=== PATIENT | male | born 1960 | race Caucasian/White ===

== ENCOUNTER 2023-11-09 19:38 | Emergency (ER) | payer OTHER, SELFPAY ==
[2023-11-09 19:41] VITALS: BP 143/74; PULSE 85; O2SAT 95
[2023-11-09 19:56] VITALS: BP 142/85; PULSE 76; RESP 20; TEMP 37.3; O2SAT 95; BMI 49.6
[2023-11-09 20:10] LABS: Appearance Urine Clear; Color Urine Orange; Glucose Urine UA Negative (Negative); Leukocyte Esterase Urine Small (1+) (Negative); Nitrite Urine Negative (Negative); PH 5.5 (5.0-9.0); Specific Gravity - Urine 1.015 (1.005-1.025); UMIC TRIGGER UACC YES; Urine Blood Large (3+) (Negative); Urine Ketones Negative (Negative); Urine Protein 300 (3+) mg/dL (Neg-Trace)
[2023-11-09 20:19] LABS: MANUAL DIFF FLAG NO
[2023-11-09 20:21] LABS: Basophils Absolute Auto 0.1 X10*3/uL (0.0-0.2); Basophils Percent Auto 0.8 % (0-2); Eosinophils Absolute Auto 0.2 X10*3/uL (0.0-0.4); Hematocrit 44.8 % (42.0-52.0); Hemoglobin 14.9 g/dl (14.0-18.0); Imm Gran Abs Auto 0.02 X10*3/uL (0.00-0.03); Imm Gran Pct Auto 0.3 % (0.0-0.4); Lymphocytes Absolute Auto 1.1 X10*3/uL (1.2-4.9); Lymphocytes Percent Auto 13.7 % (20-40); Mean Corpuscular HGB Conc 33.3 g/dl (31.0-36.0); Mean Corpuscular Hemoglobin 26.9 pg (27.0-33.0); Mean Platelet Volume 11.4 fL (9.4-12.4); Monocytes Absolute Auto 0.9 X10*3/uL (0.1-1.2); Monocytes Percent Auto 10.9 % (2-11); Neutrophils Absolute Auto 5.7 x10*3/uL (2.0-8.3); Neutrophils Percent Auto 71.3 % (45-73); Platelet Count 208 X10*3/uL (160-400); Red Blood Count 5.53 X10*6/uL (4.60-5.80); Red Cell Distribution Width 14.6 % (11.0-16.0)
[2023-11-09 20:30] LABS: Bacteria Urine None Seen (None Seen); Hyaline Casts Urine 0-2 /LPF (0-2); RBC Urine >20 /HPF (0-2); Squamous Epithelial Cell Urine 0-2 /HPF (0-2); UACC Culture Trigger YES
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
[2023-11-09 20:39] LABS: Alanine Aminotransferase 18 U/L (0-40); Albumin Level 4.2 g/dL (3.5-5.0); Alkaline Phosphatase 83 U/L (39-117); Anion Gap 17 (12-20); Aspartate Amino Transferase 16 U/L (5-37); Bilirubin Total 0.7 mg/dL (0.0-1.0); Blood Urea Nitrogen 17 mg/dL (9-16); Calcium 9.6 mg/dL (8.4-10.2); Carbon Dioxide 27 mmol/L (22-29); Chloride 101 mmol/L (96-108); Creatinine Clr Calc Pharmacy 177.9; Estimated Glomerular Filt Rate > 60; Glucose Random 106 mg/dL (60-115); Potassium 3.9 mmol/L (3.3-5.1); Sodium 141 mmol/L (135-145); Total Protein 7.7 g/dL (6.5-8.0)
[2023-11-09 20:44] LABS: B Type Natriuretic Peptide 18 pg/mL (<100)
[2023-11-09 20:47] LABS: Troponin-I High Sensitivity 3.4 ng/L (<3.5-35.0)
[2023-11-09 21:10] LABS: Lipase 15 U/L (8-78)
[2023-11-09] MEDS: oxyBUTYnin chloride ER 5 MG TAB.ER.24 10 MG PO (22:50)
--- NOTE | 2023-11-09 23:02 | ED.MALEGU ---
HPI - Male Genitourinary General Chief complaint: Urogenital-Male Stated complaint: CARVER CATH ISSUES Time Seen by Provider: 11/09/23 21:10 Source: patient Mode of arrival: EMS History of Present Illness HPI Narrative: 63-year-old male brought in by EMS, paraplegic at baseline with chronic use of Carver catheter since August of this year. He states that he has had significant suprapubic discomfort and has recently had the Carver catheter placed, he was evaluated at [facility] within the past 24 hours. He denies any fevers or chills. Patient also reports he has had significant difficulty getting his primary care doctor to set up transportation for his urology visits. Related Data Previous Rx's ?Medication ?Instructions ?Recorded oxybutynin chloride 10 mg 10 mg PO DAILY #3 tabs 11/10/23 tablet,extended release 24 hr Allergies Allergy/AdvReac Type Severity Reaction Status Date / Time No Known Allergies Allergy Verified 11/09/23 19:57 Review of Systems Review of Systems: Pertinent positives and negatives as stated in [facility]PI [facility] Past Medical History Source: nursing notes reviewed Social History Social History Smoked in Last 30 Days: No Use of substances other than those prescribed or required for medical reasons: No Advance Directives: No Advance Directives Information Provided: No Do you have a plan to hurt others: No Plan Physical Exam Vital Signs: Vital Signs: Last Vital Signs Temp 99.2 F 11/09/23 19:56 Pulse 76 11/09/23 19:56 Resp 20 11/09/23 19:56 BP 142/85 H 11/09/23 19:56 Pulse Ox 95 11/09/23 19:56 O2 Del Method Room Air 11/09/23 19:56 BMI result Body Mass Index 49.6 VITAL SIGNS: Reviewed. GENERAL: Elevated BMI, Well developed, well nourished, in no acute distress. HEAD: Normocephalic/atraumatic EYES: PERRLA, EOMI EARS: Ext canals without abnormality NOSE: Nares patent bilateral OROPHARYNX: no oral lesions noted, posterior pharynx clear NECK: Supple, no adenopathy LUNGS: Normal breath sounds. No adventitious sounds or accessory muscle use. SpO2<95> CARDIOVASCULAR: Regular rate and rhythm without noted murmurs, no JVD or lower extremity edema. ABDOMEN: Soft, non-tender, non-distended with bowel sounds. : Patent with noted occasional blood clots MUSCULOSKELETAL: No tenderness, deformities, or effusions noted on gross inspection. EXTREMITIES: No cyanosis, clubbing or edema. SKIN: Inspection of the skin reveals no rashes, ulcerations, jaundice, pallor, or petechiae. NEUROLOGIC: Alert and oriented x 4. Paraplegia at baseline at level T4 Medications Administered Discontinued Medications Generic Name Dose Route Start Last Admin Trade Name Freq PRN Reason Stop Dose Admin Oxybutynin Chloride 10 mg 11/09/23 22:31 11/09/23 22:50 Oxybutynin Chloride Er 5 Mg Tab.Er.24 PO 11/09/23 22:32 10 mg ONCE ONE Administration Medical Decision Making Medical Decision Making [facility] Narrative: 63-year-old male with history and clinical presentation, DDX: Bladder spasm versus urinary tract infection. Carver catheter appears patent so do not suspect urinary retention. INTERVENTION: 10 mg oxybutynin I reviewed all investigations and hematologic indices are negative for leukocytosis/anemia/thrombocytopenia. Chemistry indices are negative for TAMI/electrolyte or liver enzyme derangements. Urinalysis demonstrates presence of hematuria, no presence of bacteria and on re-evaluation patient is resting comfortably in bed. Patient is otherwise discharged home with a referral to follow-up with urology in the next 1-2 days. Differential Diagnosis Differential Diagnoses: The differential diagnosis associated with the presentation includes Please see the discussion above Admission/Observation Consideration of admission/observation: Escalation of care including admission/observation considered Please see the discussion above Lab Data [facility] Lab Attestation statement: I reviewed the patient's lab results. Please see the discussion above 11/09/23 20:13 11/09/23 20:13 Labs: Lab Results 11/09/23 11/09/23 Range/Units 19:59 20:13 WBC 8.0 (4.8-10.8) X10*3/uL RBC 5.53 (4.60-5.80) X10*6/uL Hgb 14.9 (14.0-18.0) g/dl Hct 44.8 (42.0-52.0) % MCV 81.0 (80.0-98.0) fL MCH 26.9 L (27.0-33.0) pg MCHC 33.3 (31.0-36.0) g/dl RDW 14.6 (11.0-16.0) % Plt Count 208 (160-400) X10*3/uL MPV 11.4 (9.4-12.4) fL Immature Gran % (Auto) 0.3 (0.0-0.4) % Neut % (Auto) 71.3 (45-73) % Lymph % (Auto) 13.7 L (20-40) % Tama % (Auto) 10.9 (2-11) % Eos % (Auto) 3.0 (0-4) % Baso % (Auto) 0.8 (0-2) % Lymph # (Auto) 1.1 L (1.2-4.9) X10*3/uL [place]ama # (Auto) 0.9 (0.1-1.2) X10*3/uL Eos # (Auto) 0.2 (0.0-0.4) X10*3/uL Baso # (Auto) 0.1 (0.0-0.2) X10*3/uL Abs Immat Gran (auto) 0.02 (0.00-0.03) X10*3/uL Absolute Neuts (auto) 5.7 (2.0-8.3) x10*3/uL Absolute Nucleated RBC 0.000 (0.0-0.012) X10*3/uL Nucleated RBC % (auto) 0.0 (0.0-0.2) /100WBC Sodium 141 (135-145) mmol/L Potassium 3.9 (3.3-5.1) mmol/L Chloride 101 (96-108) mmol/L Carbon Dioxide 27 (22-29) mmol/L Anion Gap 17 (12-20) BUN 17 H (9-16) mg/dL Creatinine 0.67 (0.5-1.4) mg/dL Estim Creat Clear Calc 177.9 Estimated GFR > 60 Random Glucose 106 (60-115) mg/dL Calcium 9.6 (8.4-10.2) mg/dL Total Bilirubin 0.7 (0.0-1.0) mg/dL AST 16 (5-37) U/L ALT 18 (0-40) U/L Alkaline Phosphatase 83 (39-117) U/L Troponin I High Sens 3.4 (<3.5-35.0) ng/L B-Natriuretic Peptide 18 (<100) pg/mL Total Protein 7.7 (6.5-8.0) g/dL Albumin 4.2 (3.5-5.0) g/dL Lipase 15 (8-78) U/L Urine Color [place] A Urine Appearance Clear Urine pH 5.5 (5.0-9.0) Ur Specific [place] 1.015 (1.005-1.025) Urine Protein 300 (3+) H (Neg-Trace) mg/dL Urine Glucose (UA) Negative (Negative) mg/dL Urine Ketones Negative (Negative) mg/dL Urine Blood Large (3+) H (Negative) Urine Nitrite Negative (Negative) Ur Leukocyte Esterase Small (1+) H (Negative) Urine RBC >20 H (0-2) /HPF Urine WBC 6-10 H (0-5) /HPF Ur Squamous Epith Cells 0-2 (0-2) /HPF Urine Bacteria None Seen (None Seen) Hyaline Casts 0-2 (0-2) /LPF Urine Yeast Present Chronic Conditions Paraplegia Critical Care Time Critical Care Time Critical Care Time: Yes Total Critical Care Time: 45 Attestation: I personally attest to this time spent taking care of the patient. Discharge Plan Discharge Clinical Impression: Bladder spasm Patient Disposition: Home, Self-Care Instructions: Carver Catheter Placement and Care (ED) Additional Instructions: Your workup tonight is negative and suspect you may have been experiencing bladder spasms. A prescription for medication to treat bladder spasms has been sent to your pharmacy. You are also being provided with a referral to follow-up with urology. Prescriptions: New oxybutynin chloride 10 mg tablet extended release 24hr 10 mg PO DAILY Qty: 3 0RF Referrals: Storm Newell MD [Physician] - Filiberto Christensen NP [Primary Care Provider] - Print Language: Korean
[2023-11-10 01:57] VITALS: BP 152/79; PULSE 80; RESP 18; TEMP 36.6; O2SAT 96
[2023-11-10] MEDS: oxyCODONE HCl Immed Release 5 MG TABLET 10 MG PO (02:13)
--- NOTE | 2023-11-10 02:14 | PC.NURSE ---
pt verbalizing medication administration not effectiveness. pt verbalizing 10/10 pain. medication administered per provider order. effectiveness pending.
--- NOTE | 2023-11-10 03:41 | PC.NURSE ---
pt currently asleep/resting in no apparent distress. no sob/wob noted. respirations even and unlabored. pt waiting for transportation at this time.
--- NOTE | 2023-11-10 03:54 | PC.NURSE ---
report given to jose l VORA at this time.
--- NOTE | 2023-11-10 05:18 | PC.NURSE ---
[facility] bedside attempting to transport patient back to where he resides at [facility] in [place]. Patient verbalized to this RN as well as Dr. Domingo that he is independent baseline and does not rely on help to complete ADLs throughout the day. Patient verbalizes that he has a friend (Raul) who helps him our time to time throughout the day to help with medications and setting up his table for the day. At this time, pt is refusing to leave ED as he states that he does not have access to his room since he left his hotel tracy at home. Pt educated on the fact that the hotel where he resides will be able to allow him in with a tracy that they own. Patient then verbalizing he was unable to leave at this time d/t not having a properly set up table after getting situated because only his friend knows how to do it. [facility] bedside telling patient that they are more than happy/willing to get him situated in a way that makes him comfortable. Patient continues to make excuses on why he is not able to leave including that it's too early to call the person who takes care of him (Raul). referral nurse, Joanne, bedside for interaction. Patient was asked if he feels safe at the hotel room - patient states yes. He was then asked if there are extra services that he is looking for that we may potentially be able to provide. Patient states that he does not want to stay here and that he wants to go back to the hotel as that has been his home for the past 7 months. Louis[facility] [place] [facility] missed transportation back to [facility]. As of now, the plan is to call Raul at 0630 so he is able to meet patient and EMS at the hot so patient is able to get situated comfortably. Plan of care ongoing.
--- NOTE | 2023-11-10 05:27 | PC.NURSE ---
T/w was notified by Cassi PADRON @ approx 0430 that EMS was at bedside to transport this pt home and he was refusing to leave. Pt explaining to t/w that he has a friend who comes to his hotel and gets him set up since housekeeping cleaned his room. Pt states he was not notified of pending discharge and is refusing to leave the hospital until his friend is notified and able to set his room up. EMS at bedside explaining that they were happy to help this patient get situated however he continued to refuse, states it would take hours!!' states that pt was escorted out of [facility] yesterday by police as he was also refusing to leave, once he left [facility], he came [place] [facility] [place]. T/w offering patient all available services, PT/CM consult for STR if he felt unsafe going back to the hotel or if he was unable to care for himself. Pt refusing, continues to state that he does want to return to his hotel but not until he is able to call his friend at 8 am. Plan for Cassi PADRON to call Raul Stanton @ 0615 or brother Sergei Rodríguez [phone], to arrange plan for return transportation to the hotel @ 0615. Pt agreeable to being moved into the hallway until transported to [facility]. Once t/w moved pt into the hallway, he started screaming at staff about germs, stated if you want me to make a scene, I will certainly make one!!! Nursing mill platform supervisor notified of situation, including pt refusing transportation to [facility] despite being discharged. Plan ongoing.
[2023-11-10 06:15] VITALS: BP 134/54; PULSE 76; RESP 16; TEMP 36.3; O2SAT 96
--- NOTE | 2023-11-10 06:37 | PC.NURSE ---
Raul was contacted by Cassi, Raul states that he will meet pt at the hot upon discharge. Pt notified, EMS rebooked for transport to [facility].
--- NOTE | 2023-11-10 07:00 | PC.NURSE ---
Pt aggressive, yelling at staff and other patients, threatening statements. Demanding to wait for friend to come to ER before being transferred back to residence. EMS at bedside waiting for transfer, second attempt. Pt made aware that friend is going to meet him at residence to assist him, staff spoke to friend on phone. Pt continued to be aggressive and threatening, multiple staff and security at bedside attempting to verbally de-escalate situation. Pt stated I am going to get the [employer] after all of you along with multiple profanities. Pt assisted onto EMS stretcher and secured. Due to pt behaviors, no d/c paperwork given, however, pt educated on when to return to ER.
[2023-11-10 07:18] VITALS: BP 134/54; PULSE 76; RESP 16; TEMP 36.3; O2SAT 96
--- NOTE | 2023-11-10 10:00 | PC.NURSE ---
Per Nichelle Workman hostess pt keeps calling, harassing staff. Requested discharge paperwork and when pt told we could reprint for him pt states You can stick the discharge paperwork up your cunt
== END 2023-11-10 07:19 | disposition home or self-care (01) ==
PROVIDERS: Emergency Provider Student in an Organized Health Care Education/Training Program; PCP Nurse Practitioner Family
DX: R10.2 Pelvic and perineal pain (principal); N32.89 Other specified disorders of bladder; T83.9XXA Unspecified complication of genitourinary prosthetic device, implant and graft, initial encounter; Y73.8 Miscellaneous gastroenterology and urology devices associated with adverse incidents, not elsewhere classified; Y92.9 Unspecified place or not applicable; Z79.899 Other long term (current) drug therapy
CPT/HCPCS: 36415; 51798; 80053; 81001; 83690; 83880; 84484; 85025; 87086; 99283; 99285

== ENCOUNTER 2025-05-12 01:41 | Emergency (ER) | payer MEDICAID, SELFPAY ==
--- NOTE | 2025-05-12 | ECG_ITS ---
Test Reason : CP Blood Pressure : */* mmHG Vent. Rate : 95 BPM Atrial Rate : 95 BPM P-R Int : 180 ms QRS Dur : 108 ms QT Int : 382 ms P-R-T Axes : 60 52 55 degrees QTcB Int : 480 ms Normal sinus rhythm Cannot rule out Anterior infarct , age undetermined Abnormal ECG When compared with ECG of 29-Jun-2005 14:38, MANUAL COMPARISON REQUIRED PREVIOUS ECG IS INCOMPATIBLE Referred By: Generic ED Physician Electronically Signed By: Yeison Jordan
[2025-05-12 01:56] VITALS: BP 100/58; PULSE 95; RESP 14; TEMP 37; O2SAT 96
[2025-05-12 02:09] VITALS: BMI 49.3
--- OUTSIDE RECORDS SUMMARY | 2025-05-12 02:27 | XMS_ITS | Clinical Summary ---
Author Organization [facility] Address [address] [place] [address] Phone Care Team Providers Care Peer Support Specialist Name Role Phone Physician, No Pcp Primary Care Provider Unavaila ble Allergies No known active allergies Medications carvediloL (COREG) 6.25 mg tablet Take 1 tablet (6.25 mg total) by mouth 2 (two) times a day with meals. 4 Active lactulose (CHRONULAC) solution Take 15 mL (10 g total) by mouth 2 (two) times a day if needed (Constipation) . 4 Active multivitamin (MULTIPLE VITAMINS ORAL) Take 1 tablet by mouth 1 (one) time each day. 4 Active cholecalciferol (VITAMIN D-3) 25 mcg (1,000 unit) tablet Take 2 tablets (2,000 Units total) by mouth 1 (one) time each day. 4 Active ProAir RespiClick 90 mcg/actuation aerosol powdr breath activated Take 2 puffs by mouth every 6 (six) hours if needed. for wheezing 4 Active aspirin 81 mg EC tablet Take 1 tablet (81 mg total) by mouth 1 (one) time each day in the morning. 5 Active chlorhexidine (PERIDEX) 0.12 % solution Use 15 mL in the mouth or throat if needed for wound care. 5 Active folic acid (FOLVITE) 1 mg tablet Take 1 tablet (1 mg total) by mouth 2 (two) times a day. Active torsemide (DEMADEX) 20 mg tablet Take 2 tablets (40 mg total) by mouth 1 (one) time each day in the morning. 5 Active torsemide (DEMADEX) 20 mg tablet Take 1 tablet (20 mg total) by mouth 1 (one) time each day after lunch. Active clopidogreL (PLAVIX) 75 mg tablet Take 1 tablet (75 mg total) by mouth 1 (one) time each day. Resume 04/06 if no further bloody urine 5 Active ciprofloxacin (CIPRO) 500 mg tablet Take 1 tablet (500 mg total) by mouth 2 (two) times a day for 10 days. 20 each 5 04/14/20 25 polyethylene glycol (MIRALAX) 17 gram packet Take 17 g by mouth 1 (one) time each day. 510 g 5 05/05/20 25 tamsulosin (FLOMAX) 0.4 mg 24 hr capsule Take 1 capsule (0.4 mg total) by mouth 1 (one) time each day. Capsules should be taken 30 minutes following the same meal each day. 30 each 5 05/04/20 25 Active Problems Problem Noted Date Diagnosed Date Complicated UTI (urinary tract infection) 2024 Chronic pain syndrome 04/15/2024 Edema of both lower extremities 04/15/[address] 04/15/2024 Morbid obesity (CMS/HCC V24, CMS/FORMER[facility] V28) 2023 Post-traumatic paraplegia (CMS/HCC V24, CMS/[facility] V28) 04/15/2024 Pressure injury of skin of sacral region 024 Primary hypertension 04/15/2024 Spinal stenosis of lumbar region 04/15/2024 CAD (coronary artery disease) 03/22/2024 Diarrhea 03/22/2024 Diastolic heart failure (CMS/HCC V24, CMS/HCC V2 8) 03/22/2024 Gout 03/22/2024 Liver function failure (CMS/HCC V24, CMS/HCC V28 ) 03/22/2024 Neuropathy 03/22/2024 Encounters Date Type Department Care Team Description 04/03/2025 12:20 AM EDT - 04/04/2025 1:17 PM EDT Hospital Encounter [facility] Urology Unit [address] [place] [id number] Eliot Hunter MD Flores, Carlos M, MD Seralathan, Manikandan, MD Urinary tract infection associated with indwelling urethral catheter, initial encounter ([facility] V24) (Primary Dx); Hematuria, unspecified type; Bladder spasms Discharge Disposition: Home or Self Care from Last 3 Months Medical History Medical History Date Comments Hypertension CHF (congestive heart failure) ([facility] V24, [facility] /[facility] V28) Social History Tobacco Use Types Packs/Day Years Used Date Smoking Tobacco: Never Tobacco Cessation:Counseling Given: Not Answered Alcohol Use Standard Drinks/Week Comments Never 0 (1 standard drink = 0.6 oz pur e alcohol) Interpersonal Safety Answer Date Record ed Physical Abuse Unrecognized value 04/03/2025 Verbal Abuse Unrecognized value 04/03/2025 Sex and Gender Information Value Date Recorded Sex Assigned at Not on file Legal Sex Male 1:35 PM EDT Gender Identity Not on file Sexual Orientation Not on file Obstetrics History Last Filed Vital Signs Vital Sign Reading Time Taken Comments Blood Pressure 142/68 04/04/2025 10:30 AM EDT Pulse 78 04/04/2025 10:30 AM EDT Temperature 36.8 C (98.2 F) 04/04/2025 10:30 AM EDT Respiratory Rate 18 04/04/2025 10:30 AM EDT Oxygen Saturation 95% 04/04/2025 10:30 AM EDT Inhaled Oxygen Concentration - - Weight 159 kg (350 lb) 04/03/2025 12:45 AM EDT Height 182.9 cm (6') 04/03/2025 12:45 AM EDT Body Mass Index 47.47 04/03/2025 12:45 AM EDT Plan of Treatment Health Maintenance Due Date Last Done Comments Colorectal Cancer Screening: Colonoscopy 1959 Pneumococcal Vaccine: 50+ Years (1 of 2 - PCV) 1978 RSV Immunization Adult Patients (1 - Risk 50-74 years 1-dose series) 2009 Zoster Vaccines (1 of 2) 2009 DTaP,Tdap,and Td Vaccines (2 - Td or Tdap) 07/04/2010 07/04/2000 Cholesterol Screening (Lipid Panel) 01/25/2024 04/22/1999 Social Influencers of Health Screening 01/25/2024 Depression Screening 07/04/2024 COVID-19 Vaccine ( season) 2025 Influenza Vaccine (#1) 2025 03/29/2023 Falls Risk Assessment 04/04/2026 04/04/2025 Hypertension/CHF/CAD Annual BMP Blood Test 04/04/2026 04/04/2025, 04/03/2025, 06/06/2024, Additional history exists Hepatitis C Screening Completed 03/18/1999 HIB Vaccines Aged Out No longer eligi ble based on patient's age to complete this topic HPV Vaccines Aged Out No longer eligi ble based on patient's age to complete this topic Hepatitis A Vaccines Aged Out No long er eligible based on patient's age to complete this topic Hepatitis B Vaccines Aged Out No long er eligible based on patient's age to complete this topic IPV Vaccines Aged Out No longer eligi ble based on patient's age to complete this topic MMR Vaccines Aged Out No longer eligi ble based on patient's age to complete this topic Meningococcal ACWY Vaccine Aged Out N o longer eligible based on patient's age to complete this topic Meningococcal B Vaccine Aged Out No l onger eligible based on patient's age to complete this topic RSV Immunization Patients Under 20 months Aged Out No longer eligible based on patient's age to complete this topic Varicella Vaccines Aged Out No longer eligible based on patient's age to complete this topic Procedures Procedure Name Priority Date/Time Associated Diagnosis Comments CBC WITH AUTO DIFFERENTIAL Routine 04/04/2025 6:35 AM EDT CBC AND DIFFERENTIAL Routine 04/04/2025 6:35 AM EDT MAGNESIUM Routine 04/04/2025 6:35 AM EDT BASIC METABOLIC PANEL Routine 04/04/2025 6:[address] ABDOMEN PELVIS W CONTRAST STAT 04/03/2025 5:40 AM EDT YELLOW URINE NO ADDITIVE Routine 04/03/2025 2:57 AM EDT EXTRA TUBES Routine 04/03/2025 2:57 AM EDT URINALYSIS WITH REFLEX MICROSCOPIC STAT 04/03/2025 2:57 AM EDT URINALYSIS WITH REFLEX MICROSCOPIC STAT 04/03/2025 2:57 AM EDT CULTURE URINE STAT 04/03/2025 2:57 AM EDT CBC WITH AUTO DIFFERENTIAL STAT 04/03/2025 1:41 AM EDT COMPREHENSIVE METABOLIC PANEL STAT 04/03/2025 1:41 AM EDT CBC AND DIFFERENTIAL STAT 04/03/2025 1:41 AM EDT LIPID PANEL Routine 04/22/1999 HEPATITIS C SCREENING Routine 03/18/1999 from Last 3 Months or Most Recently Relevant to Health Maintenance Results * (ABNORMAL) CBC auto differential (04/04/2025 6:35 AM EDT) Only the most recent of2 resultswithin the time period is included. WBC 11.0(H) 4.8 - 10.8 K/mcL LAB HEMETOLOGY METHOD 04/04/2025 7:05 AM EDT [facility] RBC 5.10 4.50 - 5.50 M/mcL LAB HEMETOLOGY METHOD 04/04/2025 7:05 AM EDT [facility] Hemoglobin 13.5 13.5 - 17.5 g/dL LAB HEMETOLOGY METHOD 04/04/2025 7:05 AM [facility] Hematocrit 43.1 42.0 - 54.0 % LAB HEMETOLOGY METHOD 04/04/2025 7:05 AM [facility] MCV 84.7 79.0 - 98.0 FL LAB HEMETOLOGY METHOD 04/04/2025 [facility] MCH 26.5(L) 27.0 - 32.0 pcg LAB HEMETOLOGY METHOD 04/04/2025 7:05 AM [facility] MCHC 31.3(L) 32.0 - 37.0 g/dL LAB HEMETOLOGY METHOD 04/04/2025 7:05 AM [facility] RDW 13.2 11.0 - 15.0 % LAB HEMETOLOGY METHOD 04/04/2025 7:05 AM [facility] Platelets 233 130 - 400 K/mcL LAB HEMETOLOGY METHOD 04/04/2025 7:05 AM [facility] MPV 11.6(H) 7.0 - 11.0 FL LAB HEMETOLOGY METHOD 04/04/2025 7:05 AM [facility] NRBC 0.0 <1.0 % LAB HEMETOLOGY METHOD 04/04/2025 7:05 AM [facility] NRBC Absolute 0.00 <0.10 K/mcL LAB HEMETOLOGY METHOD 04/04/2025 7:05 AM [facility] Neutrophils Relative 71.8 % LAB HEMETOLOGY METHOD 04/04/2025 7:05 AM [facility] Lymphocytes Relative 12.2 % LAB HEMETOLOGY METHOD 04/04/2025 7:05 AM [facility] Monocytes Relative 12.3 % LAB HEMETOLOGY METHOD 04/04/2025 7:05 AM [facility] Eosinophils Relative 2.7 % LAB HEMETOLOGY METHOD 04/04/2025 7:05 AM [facility] Basophils Relative 0.6 % LAB HEMETOLOGY METHOD 04/04/2025 7:05 AM [facility] Immature Granulocytes Relative 0.4 % LAB HEMETOLOGY METHOD 04/04/2025 7:05 AM EDT [facility] Neutrophils Absolute 7.87(H) 1.50 - 7.00 K/mcL LAB HEMETOLOGY METHOD 04/04/2025 7:05 AM EDT [facility] Lymphocytes Absolute 1.34 1.00 - 5.00 K/mcL LAB HEMETOLOGY METHOD 04/04/2025 7:05 AM EDT [facility] Monocytes Absolute 1.35(H) 0.20 - 1.00 K/mcL LAB HEMETOLOGY METHOD 04/04/2025 7:05 AM EDT [facility] Eosinophils Absolute 0.30 0.00 - 0.50 K/mcL LAB HEMETOLOGY METHOD 04/04/2025 7:05 AM EDT [facility] Basophils Absolute 0.07 0.00 - 0.20 K/mcL LAB HEMETOLOGY METHOD 04/04/2025 7:05 AM EDT [facility] Immature Granulocytes Absolute 0.04(H) 0.00 - 0.03 K/mcL LAB HEMETOLOGY METHOD 04/04/2025 7:05 AM EDT [facility] Blood Venous blood specimen / Unknown Venipuncture / Unknown 04/04/2025 6:35 AM EDT 04/04/2025 6:48 AM EDT us Neg[facility] LAB BLOOD ORDERABLES Final Resul t [facility] [address] [place] [address], * Magnesium (04/04/2025 6:35 AM EDT) Magnesium 2.4 1.9 - 2.6 mg/dL LAB CHEMISTRY METHOD 04/04/2025 7:31 AM EDT [facility] Blood Venous blood specimen / Unknown Venipuncture / Unknown 04/04/2025 6:35 AM EDT 04/04/2025 6:48 AM EDT us Neg[facility] BLOOD ORDERABLES Final Resul t [facility] [address] [place] [address], [place] [phone] * (ABNORMAL) Basic metabolic panel (04/04/2025 6:35 AM EDT) Sodium 138 133 - 145 mmol/L LAB CHEMISTRY METHOD 04/04/2025 7:31 AM [facility] Potassium 3.5 3.5 - 5.5 mmol/L LAB CHEMISTRY METHOD 04/04/2025 7:31 AM [facility] Chloride 100 96 - 110 mmol/L LAB CHEMISTRY METHOD 04/04/2025 7:31 AM [facility] CO2 30 21 - 32 mmol/L LAB CHEMISTRY METHOD 04/04/2025 7:31 AM [facility] Anion Gap 8 3 - 11 LAB CHEMISTRY METHOD 04/04/2025 7:31 AM [facility] Glucose 114(H) 70 - 100 mg/dL LAB CHEMISTRY METHOD 04/04/2025 7:31 AM [facility] BUN 25 5 - 25 mg/dL LAB CHEMISTRY METHOD 04/04/2025 7:31 AM [facility] Creatinine 0.56(L) 0.70 - 1.30 mg/dL LAB CHEMISTRY METHOD 04/04/2025 7:31 AM [facility] eGFR 109 >=60 mL/min/1. 73m2 LAB CHEMISTRY METHOD 04/04/2025 7:31 AM [facility] Comment:Calculation based on the Chronic Kidney Disease Epidemiology Collaboration (CKD-EPI) equation refit without adjustment for race. BUN/Creatinine Ratio 44.6 LAB CHEMISTRY METHOD 04/04/2025 7:31 AM [facility] Calcium 9.0 8.5 - 10.5 mg/dL LAB CHEMISTRY METHOD 04/04/2025 7:31 AM EDT [facility] Blood Venous blood specimen / Unknown Venipuncture / Unknown 04/04/2025 6:35 AM EDT 04/04/2025 6:48 AM EDT us [facility] BLOOD ORDERABLES Final Resul t [facility] ([facility]) [facility] [address] [place] [address], [place] [phone] * CT Abdomen Pelvis w Contrast (04/03/2025 5:40 AM EDT) Anatomical Region Laterality Modality Body Computed Tomogra phy 04/03/2025 6:56 AM EDT Impressions 04/03/2025 6:56 AM EDT No hydronephrosis or urinary tract stone. Jamison catheter in empty urinary bladder. Prostatomegaly. This document has been electronically signed by: Nay Kingston MD on 04/03/2025 06:56:14 Narrative 04/03/2025 6:56 AM EDT INDICATION: hematuria CT abdomen and pelvis with contrast Comparison: None provided Findings: Bibasilar lung atelectasis/scarring. Spleen, gallbladder, liver, and adrenals are unremarkable. Enlarged prostate measuring 58 mm in width. Too small to characterize right renal hypodensity. No hydronephrosis or urinary tract stone. Mild proximal pancreatic fatty infiltration. No bowel obstruction, pneumoperitoneum, or pneumatosis. IVC filter. Fbxir-[id number] sized fat containing uncomplicated bilateral inguinal hernias. Diastasis recti. Appendix not seen and therefore could not be evaluated. No evidence of inflammatory right lower quadrant fatty changes. Jamison catheter in empty urinary bladder. Nonspecific small right iliac sclerotic focus. Spinal degenerative changes. No acute fracture. Procedure Note Nay Kingston MD - 04/03/2025 INDICATION: hematuria CT abdomen and pelvis with contrast Comparison: None provided Findings: Bibasilar lung atelectasis/scarring. Spleen, gallbladder, liver, and adrenals are unremarkable. Enlarged prostate measuring 58 mm in width. Too small to characterize right renal hypodensity. No hydronephrosis or urinary tract stone. Mild proximal pancreatic fatty infiltration. No bowel obstruction, pneumoperitoneum, or pneumatosis. IVC filter. Esnnw-pd-equmxflj sized fat containing uncomplicated bilateral inguinal hernias. Diastasis recti. Appendix not seen and therefore could not be evaluated. No evidence of inflammatory right lower quadrant fatty changes. Jamison catheter in empty urinary bladder. Nonspecific small right iliac sclerotic focus. Spinal degenerative changes. No acute fracture. IMPRESSION: No hydronephrosis or urinary tract stone. Jamison catheter in emptyurinary bladder. Prostatomegaly. This document has been electronically signed by: Nay Kingston MD on 04/03/2025 06:56:14 Eliot Hunter MD IMG CT PROCEDURES Final Resu lt * (ABNORMAL) Urinalysis with reflex microscopic (04/03/2025 2:57 AM EDT) Specific [place] Urine 1.010 1.003 - 1.030 LAB URINALYSIS - AUTOMATED METHOD 04/03/2025 3:42 AM [facility] pH, Urine 7.0 5.0 - 8.0 pH LAB URINALYSIS - AUTOMATED METHOD 04/03/2025 3:42 AM [facility] Leukocytes, Urine Large(A) Negative LAB URINALYSIS - AUTOMATED METHOD 04/03/2025 3:42 AM [facility] Nitrite, Urine Positive(A) Negative LAB URINALYSIS - AUTOMATED METHOD 04/03/2025 3:42 AM [facility] Protein, Urine 300(A) <=Trace mg/dL LAB URINALYSIS - AUTOMATED METHOD 04/03/2025 3:42 AM [facility] Glucose, Urine Negative Negative mg/dL LAB URINALYSIS - AUTOMATED METHOD 04/03/2025 3:42 AM [facility] Ketones, Urine Negative Negative mg/dL LAB URINALYSIS - AUTOMATED METHOD 04/03/2025 3:42 AM [facility] Urobilinogen , Urine 0.2 0.2 - 1.0 mg/dL LAB URINALYSIS - AUTOMATED METHOD 04/03/2025 3:42 AM [facility] Bilirubin, Urine Moderate(A) Negative LAB URINALYSIS - AUTOMATED METHOD 04/03/2025 3:42 AM [facility] Blood, Urine Large(A) Negative LAB URINALYSIS - AUTOMATED METHOD 04/03/2025 3:42 AM [facility] RBC, Urine >4,000(H) 0 - 4 /HPF LAB URINALYSIS - AUTOMATED METHOD 04/03/2025 3:42 AM [facility] WBC, Urine 65.4(H) 0 - 4 /HPF LAB URINALYSIS - AUTOMATED METHOD 04/03/2025 3:42 AM [facility] Squamous Epithelial, Urine >100(H) 0 - 60 /LPF LAB URINALYSIS - AUTOMATED METHOD 04/03/2025 3:42 AM [facility] Bacteria, Urine Moderate(A) Negative /HPF LAB URINALYSIS - AUTOMATED METHOD 04/03/2025 3:42 AM [facility] Hyaline Casts, Urine 21.2(H) 0 - 3 /LPF LAB URINALYSIS - AUTOMATED METHOD 04/03/2025 3:42 AM [facility] Urine Urine specimen obtained by clean catch procedure / Unknown Non-blood Collection / Unknown 04/03/2025 2:57 AM EDT 04/03/2025 3:09 AM EDT us Eliot Hunter MD LAB URINE ORDERABLES Final R esult [facility] [address] [place] [address], * Yellow urine no additive (04/03/2025 2:57 AM EDT) Pathologist [facility] Extra Tube Hold for add-ons. 04/03/2025 5:01 AM EDT [facility] Comment:Auto resulted. Urine Urine specimen obtained by clean catch procedure / Unknown Non-blood Collection / Unknown 04/03/2025 2:57 AM EDT 04/03/2025 3:12 AM EDT us Eliot Hunter MD LAB URINE ORDERABLES Final R esult Performing Organization Address [facility]/ZIP Co de Phone Number [facility] [address] [place] [address], [place] [phone] * Urine Culture (04/03/2025 2:57 AM EDT) [facility] Culture, Urine 10,000-49,000 CFU/mL Mixed urogenital tracey, no uropathogens present. Suggest repeat specimen if clinically indicated. 04/05/2025 11:37 AM EDT [facility] Urine Indwelling urinary catheter / Unknown Non-blood Collection / Unknown 04/03/2025 2:57 AM EDT 04/03/2025 3:09 AM EDT Eliot Hunter MD LAB MICROBIOLOGY - GENERAL O RDERABLES Final Result Performing Organization Address [facility]/ZIP Co de Phone Number [facility] [address] [place] [address], [place] [phone] * (ABNORMAL) Comprehensive Metabolic Panel (CMP) (04/03/2025 1:41 AM EDT) [facility] Sodium 136 133 - 145 mmol/L LAB CHEMISTRY METHOD 04/03/2025 3:52 AM EDT [facility] Potassium 3.3(L) 3.5 - 5.5 mmol/L LAB CHEMISTRY METHOD 04/03/2025 3:52 AM EDT [facility] Chloride 95(L) 96 - 110 mmol/L LAB CHEMISTRY METHOD 04/03/2025 3:52 AM [facility] CO2 33(H) 21 - 32 mmol/L LAB CHEMISTRY METHOD 04/03/2025 3:52 AM [facility] Anion Gap 8 3 - 11 LAB CHEMISTRY METHOD 04/03/2025 3:52 AM [facility] Glucose 127(H) 70 - 100 mg/dL LAB CHEMISTRY METHOD 04/03/2025 3:52 AM [facility] BUN 28(H) 5 - 25 mg/dL LAB CHEMISTRY METHOD 04/03/2025 3:52 AM [facility] Creatinine 0.82 0.70 - 1.30 mg/dL LAB CHEMISTRY METHOD 04/03/2025 3:52 AM [facility] eGFR 97 >=60 mL/min/1. 73m2 LAB CHEMISTRY METHOD 04/03/2025 3:52 AM [facility] Comment:Calculation based on the Chronic Kidney Disease Epidemiology Collaboration (CKD-EPI) equation refit without adjustment for race. BUN/Creatinine Ratio 34.1 LAB CHEMISTRY METHOD 04/03/2025 3:52 AM [facility] Calcium 9.6 8.5 - 10.5 mg/dL LAB CHEMISTRY METHOD 04/03/2025 3:52 AM [facility] AST (SGOT) 20 10 - 42 unit/L LAB CHEMISTRY METHOD 04/03/2025 3:52 AM [facility] ALT (SGPT) 33 10 - 60 unit/L LAB CHEMISTRY METHOD 04/03/2025 3:52 AM [facility] Alkaline Phosphatase 111 42 - 121 unit/L LAB CHEMISTRY METHOD 04/03/2025 3:52 AM [facility] Total Protein 7.4 6.0 - 8.0 g/dL LAB CHEMISTRY METHOD 04/03/2025 3:52 AM [facility] Albumin 3.9 3.2 - 5.0 g/dL LAB CHEMISTRY METHOD 04/03/2025 3:52 AM EDT [facility] Total Bilirubin 0.3 0.0 - 1.4 mg/dL LAB CHEMISTRY METHOD 04/03/2025 3:52 AM EDT [facility] Blood Venous blood specimen / Unknown Venipuncture / Unknown 04/03/2025 1:41 AM EDT 04/03/2025 2:52 AM EDT Eliot Hunter MD LAB BLOOD ORDERABLES Final R esult [facility] ([facility]) [facility] [address] [place] [address], [place] [phone] * (ABNORMAL) Lipid panel (04/22/1999) LDL/HDL Ratio 3 <=5 Triglycerides 202(A) <=200 mg/dL Cholesterol 163 <=200 mg/dL HDL 65 >=34 mg/dL LDL Cholesterol 104 0 - 130 mg/dL Blood Venous blood specimen / Unknown Historical [facility] BLOOD ORDERABLES Yue l Result * Hepatitis C Screening (03/18/1999) Pathologist [facility] Hepatitis C Screening Abstracted Historical [facility] Final Result from Last 3 Months or Most Recently Relevant to Health Maintenance Insurance MEDICA[place] - [place] Advance Directives * Full Code - Default (Latest Code Status on File) Date Activated Date Inactivated Comments 04/03/2025 8:42 AM 04/04/2025 3:18 PM This is orde r is used when code status has not been discussed with the patient, or code status is otherwise unknown/unconfirmed To update the patient's code status, place a code status order. Do not modify or discontinue any currently active code status orders. * Full Code - Confirmed Date Activated Date Inactivated Comments 06/07/2024 5:14 AM 06/12/2024 4:13 PM This code s tatus was ascertained in the following way: Code status discussion: discussion with patient To update the patient's code status, place a code status order. Do not modify or discontinue any currently active code status orders. Care Teams Peer Support Specialist Relationship Specialty Start Date End Date Physician, No Pcp PCP - General 04/03/25
[2025-05-12 02:34] LABS: MANUAL DIFF FLAG NO
[2025-05-12 02:36] LABS: Hematocrit 51.2 % (42.0-52.0); Hemoglobin 17.1 g/dl (14.0-18.0); Imm Gran Abs Auto 0.04 X10*3/uL (0.00-0.03); Imm Gran Pct Auto 0.4 % (0.0-0.4); Lymphocytes Absolute Auto 1.1 X10*3/uL (1.2-4.9); Mean Corpuscular HGB Conc 33.4 g/dl (31.0-36.0); Mean Corpuscular Hemoglobin 26.7 pg (27.0-33.0); Mean Corpuscular Volume 79.9 fL (80.0-98.0); NRBC Abs Auto 0.000 X10*3/uL (0.0-0.012); NRBC Pct Auto 0.0 /100WBC (0.0-0.2); Platelet Count 250 X10*3/uL (160-400); Red Blood Count 6.41 X10*6/uL (4.60-5.80); White Blood Count 10.3 X10*3/uL (4.8-10.8)
--- NOTE | 2025-05-12 02:36 | MHC.EDTECH ---
Patient refused to oral temperature, RN aware.
[2025-05-12 03:00] LABS: Alanine Aminotransferase 34 U/L (0-40); Albumin Level 4.9 g/dL (3.5-5.0); Alkaline Phosphatase 117 U/L (39-117); Anion Gap 19 (12-20); Aspartate Amino Transferase 26 U/L (5-37); Blood Urea Nitrogen 27 mg/dL (9-16); Calcium 9.7 mg/dL (8.4-10.2); Carbon Dioxide 38 mmol/L (22-29); Chloride 80 mmol/L (96-108); Creatinine Clr Calc Pharmacy 103.1; Estimated Glomerular Filt Rate > 60; Magnesium 2.4 mg/dL (1.6-2.6); Potassium 2.7 mmol/L (3.3-5.1); Sodium 134 mmol/L (135-145); Total Protein 8.4 g/dL (6.5-8.0)
[2025-05-12 03:08] LABS: NT Pro B Type Natriuretic Pept 72.3 pg/mL (<300); Troponin-I High Sensitivity 10.8 ng/L (<3.5-35.0)
[2025-05-12 04:33] LABS: Reflex Lactate? Lactic Acid Added
[2025-05-12 05:19] LABS: ~Lactic Acid-LAB USE ONLY 1.3 mmol/L (0.5-2.0)
--- NOTE | 2025-05-12 05:31 | ED.MALEGU ---
HPI - Male Genitourinary General Chief complaint: Urogenital-Male Stated complaint: CATHETER PAIN/BURNING, FEVER X1W PER EMS Time Seen by Provider: 05/12/25 05:03 Source: patient, family and EMS Mode of arrival: EMS Related Data Previous Rx's ?Medication ?Instructions ?Recorded oxybutynin chloride 10 mg 10 mg PO DAILY #3 tabs 11/10/23 tablet,extended release 24 hr cefuroxime axetil 250 mg tablet 250 mg PO Q12H 7 days #14 tabs 05/12/25 furosemide 80 mg tablet (Lasix) 80 mg PO BID 90 days #180 tabs 05/12/25 potassium chloride 10 mEq 10 meq PO DAILY 90 days #90 tabs 05/12/25 tablet,extended release (Klor-Con) Allergies Allergy/AdvReac Type Severity Reaction Status Date / Time No Known Allergies Allergy Verified 05/12/25 02:14 [facility] Social History Social History Smoked in Last 30 Days: No Use of substances other than those prescribed or required for medical reasons: No Advance Directives: No Advance Directives Information Provided: Yes Physical Exam Vital Signs: Vital Signs: Last Vital Signs Temp 98.2 F 05/12/25 06:30 Pulse 83 05/12/25 06:30 Resp 18 05/12/25 06:30 BP 100/54 L 05/12/25 06:30 Pulse Ox 94 05/12/25 06:30 O2 Del Method Room Air 05/12/25 06:30 BMI result Body Mass Index 49.3 Course Course Course Narrative: Patient is due for a Jamison catheter change. Patient and his are concerned that patient has a very hard time getting to his appointments. They are requesting to have a case aide consult to see if they can be helped with transferred. Also, they are requesting a referral to Urology. Patient does not have a primary care physician. Medications Administered Discontinued Medications Generic Name Dose Route Start Last Admin Trade Name Freq PRN Reason Stop Dose Admin Morphine Sulfate 1 mg 05/12/25 05:23 05/12/25 05:55 Morphine Sulfate 4 Mg/Ml Cartridge IM 05/12/25 05:24 1 mg ONCE ONE Administration Protocol Potassium Chloride 40 meq 05/12/25 05:25 05/12/25 05:53 Potassium Chloride Er 20 Meq Tab.Er.Prt PO 05/12/25 05:26 40 meq ONCE ONE Administration Medical Decision Making Medical Decision Making MDM Narrative: My interpretation of EKG: Normal sinus rhythm, heart rate 95, no ST segment depression or elevation, no T-wave inversion, QTC 480. Patient's chemistry shows a potassium of 2.7, being repleted orally. Also, patient's initial lactic acid was 2.5. Which then improved to 1.3 without any intervention. LFTs within normal limits. Patient requested medication for pain before changing his Jamison catheter. Urinalysis pending. Case management pending, patient states that he needs help with transportation to get to his appointments. Sign-out given to my colleague Dr. Hurtado 05/12/25 Provider: Santino Hurtado MD 09:00 I assumed care of this patient my colleague, Dr. Marjorie Barrios at 07:00 hours. Patient's UA was pending and case management consult is pending as well. Patient had his Jamison catheter changed and urine sample was sent off the new Jamison catheter. UA was positive for protein, blood, leukocyte esterase. Microscopic revealed 3-5 RBCs, greater than 50 WBCs, 6-10 squamous cells, 2+ bacteria-consistent with a urinary tract infection. Troponin was detectable but not elevated at 10.8. Patient's 12 EKG revealed a normal sinus rhythm with a rate of 96, normal OK interval, prolonged QRS duration of 108 milliseconds, normal QTC interval, no ST segment elevation, no ST segment depression, no significant T-wave abnormalities, no PACs, no PVCs. The patient wants to talk to case management about getting further services therefore he will be kept in the emergency department until he can be seen by our case aide. 10:58 Patient was seen by the case aide. The patient will be discharged home. Patient did have a low potassium and refused IV potassium but was given potassium 40 mEq orally. Patient is discharged home with prescriptions for cefuroxime 250 mg q.12 hours x7 day and K Dur 20 mEq b.i.d. for 1 week. Patient also requested that I refill his Lasix 80 mg b.i.d. prescription for his congestive heart failure. Patient was given a 90 day supply. Differential Diagnosis Differential Diagnoses: The differential diagnosis associated with the presentation includes (UTI, need a change of Jamison catheter., anxiety, ACS) Admission/Observation Consideration of admission/observation: Escalation of care including admission/observation considered (Patient is under physician observation waiting to be seen by the care team.) Lab Data MDM Lab Attestation statement: I reviewed the patient's lab results. 05/12/25 02:28 05/12/25 02:28 Labs: Lab Results 05/12/25 05/12/25 05/12/25 Range/Units 02: 04:55 07:19 WBC 10.3 (4.8-10.8) X10*3/uL RBC 6.41 H (4.60-5.80) X10*6/uL Hgb 17.1 (14.0-18.0) g/dl Hct 51.2 (42.0-52.0) % MCV 79.9 L (80.0-98.0) fL MCH 26.7 L (27.0-33.0) pg MCHC 33.4 (31.0-36.0) g/dl RDW 13.6 (11.0-16.0) % Plt Count 250 (160-400) X10*3/uL MPV 12.2 (9.4-12.4) fL Immature Gran % (Auto) 0.4 (0.0-0.4) % Neut % (Auto) 77.4 H (45-73) % Lymph % (Auto) 10.9 L (20-40) % [place] % (Auto) 8.8 (2-11) % Eos % (Auto) 1.8 (0-4) % Baso % (Auto) 0.7 (0-2) % Lymph # (Auto) 1.1 L (1.2-4.9) X10*3/uL [place] # (Auto) 0.9 (0.1-1.2) X10*3/uL Eos # (Auto) 0.2 (0.0-0.4) X10*3/uL Baso # (Auto) 0.1 (0.0-0.2) X10*3/uL Abs Immat Gran (auto) 0.04 H (0.00-0.03) X10*3/uL Absolute Neuts (auto) 8.0 (2.0-8.3) x10*3/uL Absolute Nucleated RBC 0.000 (0.0-0.012) X10*3/uL Nucleated RBC % (auto) 0.0 (0.0-0.2) /100WBC Sodium 134 L (135-145) mmol/L Potassium 2.7 L* D (3.3-5.1) mmol/L Chloride 80 L D (96-108) mmol/L Carbon Dioxide 38 H (22-29) mmol/L Anion Gap 19 (12-20) BUN 27 H (9-16) mg/dL Creatinine 1.09 (0.5-1.4) mg/dL Estim Creat Clear Calc 103.1 Estimated GFR > 60 Random Glucose 152 H (60-115) mg/dL Lactic Acid 2.5 H* (0.5-2.0) mmol/L Lactic Acid F/U @ 2Hr 1.3 (0.5-2.0) mmol/L Calcium 9.7 (8.4-10.2) mg/dL Magnesium 2.4 (1.6-2.6) mg/dL Total Bilirubin 0.5 (0.0-1.0) mg/dL AST 26 (5-37) U/L ALT 34 (0-40) U/L Alkaline Phosphatase 117 (39-117) U/L Troponin I High Sens 10.8 D (<3.5-35.0) ng/L NT-Pro-B Natriuret Pep 72.3 (<300) pg/mL Total Protein 8.4 H (6.5-8.0) g/dL Albumin 4.9 (3.5-5.0) g/dL Urine Color Yellow Urine Appearance Turbid Urine pH 7.0 (5.0-9.0) Ur Specific [place] 1.015 (1.005-1.025) Urine Protein 100 (2+) H (Neg-Trace) mg/dL Urine Glucose (UA) Negative (Negative) mg/dL Urine Ketones Negative (Negative) mg/dL Urine Blood Moderate (2+) H (Negative) Urine Nitrite Negative (Negative) Ur Leukocyte Esterase Large (3+) H (Negative) Urine RBC 3-5 H (0-2) /HPF Urine WBC >50 H (0-5) /HPF Urine WBC Clumps Present Ur Squamous Epith Cells 6-10 (0-2) /HPF Urine Bacteria 2+ (None Seen) Hyaline Casts 0-2 (0-2) /LPF Urine Yeast Present Critical Care Time Critical Care Time Critical Care Time: Yes Total Critical Care Time: 35 Attestation: I have personally provided critical care time. Time includes review of lab data, radiology results, discussion with consultants, and monitoring for potential decompensation. Intervention performed as documented. Discharge Plan Discharge Clinical Impression: Urinary catheter (Jamison) change required, Acute hypokalemia, Chest discomfort Patient Disposition: Home, Self-Care Instructions: Chest Pain (DC), Hypokalemia (ED) Additional Instructions: Your blood work was unremarkable except for a low potassium. You were given oral potassium here in the emergency department. Take K-Dur (potassium chloride) 10 mEq daily, dispense 90 day supply. I also prescribed Lasix (furosemide) 80 mg pills, take 1 pill twice a day, dispensed 90 day supply. Your Jamison catheter was changed by the nursing staff. You have symptoms that are concerning for urinary tract infection in your urine does reveal a significant number of white blood cells and bacteria therefore I am treating you with cefuroxime 250 mg, 1 pill every 12 hours x7 days. Your EKG was unremarkable and unchanged from your previous EKG. Continue taking medications as prescribed by your providers. You were seen by our case aide. Please follow their instructions. Follow-up with your doctor in 2 days. Please return to the emergency department if your symptoms get worse or if you develop any symptoms that are concerning to you. Prescriptions: New furosemide [Lasix] 80 mg tablet 80 mg PO BID 90 Days Qty: 180 0RF potassium chloride [Klor-Con 10] 10 mEq tablet extended release 10 meq PO DAILY 90 Days Qty: 90 0RF cefuroxime axetil 250 mg tablet 250 mg PO Q12H 7 Days Qty: 14 0RF No Action oxybutynin chloride 10 mg tablet extended release 24hr 10 mg PO DAILY Qty: 3 0RF Print Language: Arabic
[2025-05-12] MEDS: Potassium Chloride ER 20 MEQ TAB.ER.PRT 40 MEQ PO (05:53)
[2025-05-12 06:30] VITALS: BP 100/54; PULSE 83; RESP 18; TEMP 36.8; O2SAT 94
--- NOTE | 2025-05-12 06:43 | PC.NURSE ---
late entry for 0500. Pt laying in stretcher awake and alert, he reports 8/10 pain to his head, lower abdomen and back. He states that he is here primarily because he is looking to get his 22F 3way canales catheter replaced, situated with getting himself into a wheelchair at home as he is set to be moving/relocating soon. The pt asked this RN to help explain and show his how she could manage putting his catheter bag through his pants, switching his large drainage bag to a leg bag, etc. This RN offered to (with MD permission/approval) remove the current canales, replace it with a new one and obtain a urine sample from that new canales placement. The pt asked if he would be medication prior to canales catheter changes and RN informed him that all RN's can order is APAP and Ibuprofen both of which he denies being able to take. The pt is refusing to allow this RN to manage or complete any canales changes without first being medicated, the pt is awaiting primary md hamm. RN left the room and spoke with MD Ford regarding this patient's request for pain medications, RN's plan/desire to replace the canales to get a sample and to discuss his lab values to see if there is anything additional that needs to be completed. MD ford to bedside and spoke with the pt and his
[2025-05-12 07:29] LABS: Appearance Urine Turbid; Glucose Urine UA Negative (Negative); PH 7.0 (5.0-9.0); Specific Gravity - Urine 1.015 (1.005-1.025); UMIC TRIGGER UACC YES
[2025-05-12 07:42] LABS: UACC Culture Trigger YES
--- NOTE | 2025-05-12 10:40 | MHC.CM.PN ---
Addendum entered by Yenny Keane 05/12/25 13:10: PT ALSO STATED HE HAD 40 MD [facility] IMMUNOLOGY HOURS APPROVED VIA [facility], HOWEVER HAS BEEN UNABLE TO FIND ANYONE TO FILL THEM REFERRAL PLACED TO [facility] TO DETERMINE IF PT IS ELIGIBLE FOR ASSISTANCE Addendum entered by Yenny Keane 05/12/25 10:44: PT WILL NEED BLS TRANSPORTATION ARRANGED Original Note: CM MET WITH PT, PATIENT PLACEMENT COORDINATOR PRESENT TO TRANSLATE FOR PTS PT REPORTS HE HAS BEEN PARALYZED FOR 20 YEARS HE SAYS HE HAS BEEN THROUGH A COUPLE PCP'S OVER THE YEARS, HE SAYS THEY DID NOT GET THINGS DONE THAT HE NEEDED, SO HE STOPPED GOING WHEN ASKED WHO TYPICALLY CHANGES HIS CATHETER, PT REPORTS HE PRESENTS TO EMERGENCY ROOMS TO GET IT DONE PT AWARE A UROLOGY REFERRAL WILL BE MADE AND HE SHOULD REQUEST THAT THE UROLOGY OFFICE ARRANGE PT1 TRANSPORT WHEN HE MAKES AN APPT RICH EXPLAINED THE PROCESS, HOWEVER PT APPEARS AWARE OF THE TRANSPORTATION OPTIONS PT ALSO CONCERNED ABOUT BEING SENT HOME WITH EXTRA CATH BAGS, RN AWARE
[2025-05-12 12:51] VITALS: BP 100/54; PULSE 83; RESP 18; TEMP 36.8; O2SAT 94
== END 2025-05-12 12:51 | disposition home or self-care (01) ==
PROVIDERS: Emergency Medicine; Emergency Provider Emergency Medicine Emergency Medical Services
DX: N39.0 Urinary tract infection, site not specified (principal); R30.0 Dysuria; R07.89 Other chest pain; R06.02 Shortness of breath; R50.9 Fever, unspecified; Z79.899 Other long term (current) drug therapy; Z46.6 Encounter for fitting and adjustment of urinary device
CPT/HCPCS: 36415; 51701; 80053; 81001; 83605; 83735; 83880; 84484; 85025; 87040; 87086; 87088; 93005; 96372; 99284; 99285; J2270

== ENCOUNTER → 2025-05-12 02:07 | Outpatient (BNV) | payer MEDICAID, SELFPAY | PROVIDERS: Emergency Provider Emergency Medicine Emergency Medical Services; Visit Provider Internal Medicine Cardiovascular Disease | DX: R94.31 Abnormal electrocardiogram [ECG] [EKG] (principal); R07.9 Chest pain, unspecified | CPT/HCPCS: 93010 ==